=== PATIENT | female | born 1990 | race Caucasian/White ===

== ENCOUNTER 2018-11-07 20:22 | Inpatient (IN) | payer SELFPAY ==
[2018-11-07] VITALS (8 sets, daily range): BP systolic 109–126; BP diastolic 62–78; PULSE 68–85; RESP 16–18; TEMP 36.6–37.2; O2SAT 95–100; BMI 28.9
[2018-11-07] MEDS: Lactated Ringers 1,000 ML 999 ML IV (20:05)
--- NOTE | 2018-11-07 20:38 | PCM.HP.OB ---
- Problem List (1) Partial placenta previa with hemorrhage during in third trimester Status: Acute History Date of Admission: 11/07/18 Final RICKI: 11/09/18 Gestational age: 39 Weeks and 5 Days History of this : This is a 28 year-old, at 39 weeks 5 days gestational age presents with acute vaginal bleeding for the last 2 hours. 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 She started having contractions today and started having heavy bleeding saturating more than a pad an hour for the last 2 hours. She has been feeling movement is recent as 30 minutes prior to now. She has not had any ultrasounds or blood work done in the . She is a history of 2 previous term vaginal deliveries at the [facility]. Smoking Status: Never smoker Alcohol: None Number of Fetus(es): 1 Heart Tracin min-mod variability initially late decels now resolved with IVFs and position changes reactive. bedside ultrasound showed breathing and movement. toco q 2-3 placenta partial posterior previa History Past Pregnancies: Past Pregnancies 2 previous term uncomplicated vaginal deliveries at the [facility]. One was face presentation but delivered vaginally Labs: Mom's Problem List Problem Status Onset Code Partial placenta previa with hemorrhage during in third trimester Acute O44.33 Mom's Labs & Results 11/07/18 11/07/18 11/07/18 20:05 20:05 20:05 WBC Pending RBC Pending Hgb Pending Hct Pending MCV Pending MCH Pending MCHC Pending RDW Pending RDW Differential Pending Plt Count Pending Neut % (Auto) Pending Absolute Neuts (auto) Pending Total Counted Pending PT INR APTT Fibrinogen Urine Opiates Screen Urine Methadone Screen Ur Barbiturates Screen Ur Phencyclidine Scrn Ur Amphetamines Screen U Methamphetamin-MDMA U Benzodiazepines Scrn Urine Cocaine Screen U Cannabinoids Screen Ur Drug Screen Comment RPR Pending Hep Bs Antigen Hepatitis C Ab (EIA) HIV 1&2 Antibody Rubella IgG Antibody Pending Blood Type Antibody Screen 11/07/18 11/07/18 11/07/18 20:05 20:05 20:05 WBC RBC Hgb Hct MCV MCH MCHC RDW RDW Differential Plt Count Neut % (Auto) Absolute Neuts (auto) Total Counted PT INR APTT Fibrinogen Urine Opiates Screen Pending Urine Methadone Screen Pending Ur Barbiturates Screen Pending Ur Phencyclidine Scrn Pending Ur Amphetamines Screen Pending U Methamphetamin-MDMA Pending U Benzodiazepines Scrn Pending Urine Cocaine Screen Pending U Cannabinoids Screen Pending Ur Drug Screen Comment RPR Hep Bs Antigen Pending Hepatitis C Ab (EIA) Pending HIV 1&2 Antibody Rubella IgG Antibody Blood Type Pending Antibody Screen Pending 11/07/18 11/07/18 20:05 20:05 WBC RBC Hgb Hct MCV MCH MCHC RDW RDW Differential Plt Count Neut % (Auto) Absolute Neuts (auto) Total Counted PT Pending INR Pending APTT Pending Fibrinogen Pending Urine Opiates Screen Urine Methadone Screen Ur Barbiturates Screen Ur Phencyclidine Scrn Ur Amphetamines Screen U Methamphetamin-MDMA U Benzodiazepines Scrn Urine Cocaine Screen U Cannabinoids Screen Ur Drug Screen Comment RPR Hep Bs Antigen Hepatitis C Ab (EIA) HIV 1&2 Antibody Pending Rubella IgG Antibody Blood Type Antibody Screen Social History Smoking Status Never smoker Expected Delivery Method: Primary Section Number of Visits: First visit at 21 weeks only 5 visits Review of Systems Constitutional: Denies: Fever, Malaise Eyes: Denies: Blurred vision, Vision Change HEENT: Denies: Head Aches, Visual Changes Cardiovascular: Denies: Chest Pain, Palpitations Respiratory: Denies: Cough, Shortness of Breath, Wheezing Gastrointestinal: Denies: Abdominal Pain, Diarrhea, Nausea, Vomiting Genitourinary: Denies: Dysuria, Hematuria Gynecological: Reports: Vaginal bleeding - heavy greater than a pad an hour Musculoskeletal: Denies: Joint Pain, Muscle pain Skin: Denies: Lesions, Rash Neurological: Denies: Blurred vision, Focal weakness, Headaches Psychiatric: Denies: Anxiety, Depression Endocrine: Denies: Heat/ Cold Intolerance Hematologic/ Lymphatic: Denies: Easy Bruising, Easy Bleeding Physical Exam General: Alert, Cooperative, No apparent distress HEENT: Atraumatic, Normocephalic. Negative for: Thyromegaly, Lymphadenopathy Cardiovascular: Regular rate Lungs: Normal air movement Abdomen: Soft, Non Tender, Gravid Neurological: Deep Tendon Reflexes 2+/4 and Symmetrical, Neuro grossly intact. Negative for: Clonus YARD FOREMAN: Normal external genitalia. Negative for: Vulvar lesions Estimated gestational size: Appropriate for gestational size Presentation: Cephalic Assessment/Plan All Active Problems Partial placenta previa with hemorrhage during in third trimester (Acute) This is a 28 year-old, at 39w5d weeks gestational age with partial posterior placenta previa with acute hemorrhage in active labor Proceed with immediate STAS primary low transverse Type and cross 2 units all blood work sent
[2018-11-07 20:42] LABS: Absolute Lymphocyte Count 1.57 X10^3/ul (0.83-4.51); Absolute Neutrophil Count 12.3 X10^3/uL (2.0-7.7); Basophil# 0.01 X10^3/uL; Basophil% 0.1 % (0-1); Eosinophil# 0.06 X10^3/uL; Eosinophils% 0.4 % (0-5); Hematocrit 33.3 % (37-47); Hemoglobin 11.6 g/dl (12.0-15.0); Lymphocyte # 1.57 X10^3/ul (4.0); Lymphocyte % 10.5 % (19-41); Mean Corp Hgb Conc 34.8 g/gl (32-36); Mean Corpuscular Hgb 29.7 pg (27.0-32.0); Mean Corpuscular Volume 85.2 fL (81-99); Mean Platelet Vol. 9.3 fl (6.2-12.0); Monocyte# 1.01 X10^3/uL; Monocyte% 6.8 % (0-10); Neutrophil # 12.26 X10^3/uL (2.7-7.7); Platelet Count 222 K/mm3 (150-450); RBC Distribution Width CV 13.2 % (11.6-14.6); RBC Distribution Width SD 40.7 fl (35.1-43.9); Red Blood Count 3.91 M/mm3 (4.2-5.4); White Blood Count 14.9 K/mm3 (4.4-11.0)
--- NOTE | 2018-11-07 20:42 | HP.PCM_ITS ---
- Problem List (1) Partial placenta previa with hemorrhage during in third trimester Status: Acute History Date of Admission: 11/07/18 Final RICKI: 11/09/18 Gestational age: 39 Weeks and 5 Days History of this : This is a 28 year-old, at 39 weeks 5 days gestational age presents with acute vaginal bleeding for the last 2 hours. 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 She started having contractions today and started having heavy bleeding saturating more than a pad an hour for the last 2 hours. She has been feeling movement is recent as 30 minutes prior to now. She has not had any ultrasounds or blood work done in the . She is a history of 2 previous term vaginal deliveries at the [facility]. Smoking Status: Never smoker Alcohol: None Number of Fetus(es): 1 Heart Tracin min-mod variability initially late decels now resolved with IVFs and position changes reactive. bedside ultrasound showed breathing and movement. toco q 2-3 placenta partial posterior previa History Past Pregnancies: Past Pregnancies 2 previous term uncomplicated vaginal deliveries at the [facility]. One was face presentation but delivered vaginally Labs: Mom's Problem List Problem Status Onset Code Partial placenta previa with hemorrhage during in third trimester Acute O44.33 Mom's Labs & Results 11/07/18 11/07/18 11/07/18 20:05 20:05 20:05 WBC Pending RBC Pending Hgb Pending Hct Pending MCV Pending MCH Pending MCHC Pending RDW Pending RDW Differential Pending Plt Count Pending Neut % (Auto) Pending Absolute Neuts (auto) Pending Total Counted Pending PT INR APTT Fibrinogen Urine Opiates Screen Urine Methadone Screen Ur Barbiturates Screen Ur Phencyclidine Scrn Ur Amphetamines Screen U Methamphetamin-MDMA U Benzodiazepines Scrn Urine Cocaine Screen U Cannabinoids Screen Ur Drug Screen Comment RPR Pending Hep Bs Antigen Hepatitis C Ab (EIA) HIV 1&2 Antibody Rubella IgG Antibody Pending Blood Type Antibody Screen 11/07/18 11/07/18 11/07/18 20:05 20:05 20:05 WBC RBC Hgb Hct MCV MCH MCHC RDW RDW Differential Plt Count Neut % (Auto) Absolute Neuts (auto) Total Counted PT INR APTT Fibrinogen Urine Opiates Screen Pending Urine Methadone Screen Pending Ur Barbiturates Screen Pending Ur Phencyclidine Scrn Pending Ur Amphetamines Screen Pending U Methamphetamin-MDMA Pending U Benzodiazepines Scrn Pending Urine Cocaine Screen Pending U Cannabinoids Screen Pending Ur Drug Screen Comment RPR Hep Bs Antigen Pending Hepatitis C Ab (EIA) Pending HIV 1&2 Antibody Rubella IgG Antibody Blood Type Pending Antibody Screen Pending 11/07/18 11/07/18 20:05 20:05 WBC RBC Hgb Hct MCV MCH MCHC RDW RDW Differential Plt Count Neut % (Auto) Absolute Neuts (auto) Total Counted PT Pending INR Pending APTT Pending Fibrinogen Pending Urine Opiates Screen Urine Methadone Screen Ur Barbiturates Screen Ur Phencyclidine Scrn Ur Amphetamines Screen U Methamphetamin-MDMA U Benzodiazepines Scrn Urine Cocaine Screen U Cannabinoids Screen Ur Drug Screen Comment RPR Hep Bs Antigen Hepatitis C Ab (EIA) HIV 1&2 Antibody Pending Rubella IgG Antibody Blood Type Antibody Screen Social History Smoking Status Never smoker Expected Delivery Method: Primary Section Number of Visits: First visit at 21 weeks only 5 visits Review of Systems Constitutional: Denies: Fever, Malaise Eyes: Denies: Blurred vision, Vision Change HEENT: Denies: Head Aches, Visual Changes Cardiovascular: Denies: Chest Pain, Palpitations Respiratory: Denies: Cough, Shortness of Breath, Wheezing Gastrointestinal: Denies: Abdominal Pain, Diarrhea, Nausea, Vomiting Genitourinary: Denies: Dysuria, Hematuria Gynecological: Reports: Vaginal bleeding - heavy greater than a pad an hour Musculoskeletal: Denies: Joint Pain, Muscle pain Skin: Denies: Lesions, Rash Neurological: Denies: Blurred vision, Focal weakness, Headaches Psychiatric: Denies: Anxiety, Depression Endocrine: Denies: Heat/ Cold Intolerance Hematologic/ Lymphatic: Denies: Easy Bruising, Easy Bleeding Physical Exam General: Alert, Cooperative, No apparent distress HEENT: Atraumatic, Normocephalic. Negative for: Thyromegaly, Lymphadenopathy Cardiovascular: Regular rate Lungs: Normal air movement Abdomen: Soft, Non Tender, Gravid Neurological: Deep Tendon Reflexes 2+/4 and Symmetrical, Neuro grossly intact. 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 Negative for: Vulvar lesions Estimated gestational size: Appropriate for gestational size Presentation: Cephalic Assessment/Plan All Active Problems Partial placenta previa with hemorrhage during in third trimester (Acute) This is a 28 year-old, at 39w5d weeks gestational age with partial posterior placenta previa with acute hemorrhage in active labor Proceed with immediate STAS primary low transverse Type and cross 2 units all blood work sent
[2018-11-07 20:43] LABS: POSITIVE COUNT NO; POSITIVE DIFFERENTIAL NO; POSITIVE MORPHOLOGY NO
[2018-11-07] MEDS: Sodium Citrate/Citric Acid 30 ML UDC PO (20:47)
[2018-11-07 20:52] LABS: Prothrombin Time (Protime)PT. 12.5 SECONDS (11.7-14.9)
[2018-11-07] MEDS: Cefazolin 2 GM in 0.9% Normal Saline 100 ML IV (20:52)
[2018-11-07 20:53] LABS: Partial Thromboplast Time 30.5 Seconds (24.1-36.2)
--- NOTE | 2018-11-07 20:54 | PCM.OPRPT ---
Problem List (1) Partial placenta previa with hemorrhage during in third trimester Status: Acute Report of Operation Date of Procedure: 11/07/18 Pre-Operative Diagnosis: previa with hemorrhage Post-Operative Diagnosis: same Surgery/Procedure Performed:: [facility] financial aid director: Bisi Rosario Type of Anesthesia:: Spinal Delivery Classification: STAS Final RICKI: 11/09/18 Gestational age: 39 Weeks and 5 Days Indications: previa with hemorrhage Indications for : Placenta Previa Description of Procedure: The patient is a 28-year-old at 39 weeks 5 days presented for vaginal bleeding and upon evaluation diagnosed with posterior placenta previa in active labor with hemorrhage. Patient received care by linoleum tile layer in the community and had not had any ultrasounds or blood work done in the . Her fiber technologist called and she presented to the hospital was evaluated and found to have suspected posterior partial placenta previa on ultrasound. Spinal anesthesia was placed without difficulty. Oliva catheter was placed. The patient was placed in the dorsal supine position with leftward tilt. Patient was prepped and draped in the normal sterile fashion. Pfannenstiel skin incision was made with the scalpel and carried through to the underlying layer of fascia with the scalpel. Fascia was nicked in the midline and the incision extended later The peritoneum was entered digitally. The incision was stretched and a low transverse uterine incision was made with the scalpel. The infant's head was delivered atraumatically followed by the anterior and posterior shoulders without complication the rest of the delivered. The cord was clamped and cut and the was handed off to awaiting nurse. Placenta was checked and noted to be a partial previa with the cervix dilated to 4 cm with a small abruption noted at about 50 cc of adherent clot noted at the cervix. Some mild atony of the lower uterine segment was noted and remedied with bimanual massage Pitocin and Methergine. The placenta was delivered spontaneously immediately following and was noted to be intact and have a three-vessel cord. The uterus was exteriorized cleared of all clots and debris, and the incision was closed in a double layer closure using #1 Monocryl. The uterus was returned to the maternal abdomen and gutters were cleared of all clots and debris. The ovaries and fallopian tubes were noted to be within normal limits. The peritoneum was closed with 3-0 Monocryl in a running fashion. Fascia was closed with 0 PDS in a running fashion. Subcutaneous tissue was copiously irrigated and the skin was closed with 3-0 Monocryl in a subcuticular fashion. Steri-Strips and Mepilex dressing were applied without complication. Patient was taken to recovery in stable condition. Amniotic Membrane Rupture Type: Artificial Amniotic Fluid Description: Moderate meconium Placenta Disposition: [facility] Cord Entanglement: None Esitmated Blood Loss (ml): 1500 Gender: Female Delayed cord clamping: No Pre-op Antibiotic Given: Ancef 2 grams IV x1 Pt instructed on risks of surgery: Bleeding, Anesthesia Risks, Infection, Injury to surrounding structure(s) including bowel and bladder Complications: None - Admit VTE Documentation VTE Present on Admission: No VTE Mechan Device Prophylaxis: SCD's
[2018-11-07 20:57] LABS: Fibrinogen 517 mg/dl (203-444)
[2018-11-07] MEDS: Oxytocin 30 units/NS 500 ml 30 UNITS/500 ML IV.SOLN 167 UNITS IV (21:11)
[2018-11-07] MEDS: Methylergonovine 0.2 MG/ML Ampul IM (21:16)
[2018-11-07 21:32] LABS: Rubella IgG < 0.2 IU/mL
[2018-11-07 21:39] LABS: Amphetamine Urine VISTA NEGATIVE (<1000 ng/mL); Barbiturate Urine VISTA NEGATIVE (< 200 ng/mL); Benzodiazepine Urine VISTA NEGATIVE (< 200 ng/mL); Cocaine Urine VISTA NEGATIVE (< 300 ng/mL); Ecstacy Urine VISTA NEGATIVE (< 500 ng/mL); Methadone Urine VISTA NEGATIVE (< 300 ng/mL); PCP Urine VISTA NEGATIVE (< 25 ng/mL); THC Urine VISTA NEGATIVE (< 50 ng/mL); Vista UDS pH Range 6
[2018-11-07 21:56] LABS: HIV - WCH Non-Reactive (Nonreactive)
[2018-11-07 22:50] LABS: Chlamydia Trachomatis by PCR Negative (Negative); Neisserai gonorrhoeae by PCR Negative (Negative)
[2018-11-07 22:51] LABS: Probe Check PASS; Sample Adequacy Control PASS; Specimen Processing Control PASS
--- NOTE | 2018-11-07 23:11 | NURSING ---
2312-[facility] through [facility], however did see harshil dickson director of field service for her care during the
[2018-11-07] MEDS: Lactated Ringers 1,000 ML 100 ML IV (23:51)
[2018-11-08] VITALS (19 sets, daily range): BP systolic 101–128; BP diastolic 51–83; PULSE 71–100; RESP 14–18; TEMP 36.6–37.3; O2SAT 98–100
[2018-11-08] MEDS: Ketorolac 30 MG/ML Syringe IV ×5 (01:10→22:45)
--- NOTE | 2018-11-08 01:38 | NURSING ---
0132-cord blood collected initially d/t not knowing mat blood type, and then not sent d/t mat blood type being AB+
--- NOTE | 2018-11-08 01:45 | NURSING ---
013-late enrty, pt cervix not checked upon arrival d/t bleeding, dr del rio examined cervix after delivery while abd still open and noted pt to have been 4 cm dilated. pt started contx 11/07 at 1200 at home and noted the bleeding at 1830
[2018-11-08 03:44] LABS: Hematocrit 30.2 % (37-47); Hemoglobin 10.1 g/dl (12.0-15.0); Mean Corp Hgb Conc 33.4 g/gl (32-36); Mean Corpuscular Hgb 29.4 pg (27.0-32.0); Mean Platelet Vol. 9.7 fl (6.2-12.0); Platelet Count 207 K/mm3 (150-450); RBC Distribution Width CV 12.9 % (11.6-14.6); RBC Distribution Width SD 39.7 fl (35.1-43.9); Red Blood Count 3.43 M/mm3 (4.2-5.4); Scan Indicated on CBC? Y/N NO; White Blood Count 14.5 K/mm3 (4.4-11.0)
[2018-11-08] MEDS: Lactated Ringers 1,000 ML 100 ML IV ×2 (07:46→16:47)
--- NOTE | 2018-11-08 08:03 | PN.OBGYN_ITS ---
Patient Problems: Active and Suspected Problems Partial placenta previa with hemorrhage during in third trimester (Acute) Subjective: doing well no complaints pain controlled no CP SOB N V lochia moderate, - Physical Exam General: Alert, Oriented x3 Abdomen: Soft, Non-Distended, - - FF below U. Dressing intact, noted old dark drainage. Pain controlled with exam Vital Signs Temp Pulse Resp BP Pulse Ox 99.0 F 81 18 104/54 L 100 11/08/18 05:50 11/08/18 05:50 11/08/18 07:05 11/08/18 05:50 11/08/18 07:05 Oxygen Delivery Method Room Air Weight: 168 lb 10.458 oz Body Mass Index (BMI) 28.9 Intake and Output for Last 24 Hours 11/06/18 11/07/18 11/08/18 23:59 23:59 23:59 Intake Total 3253 / 3253 1305 / 1305 Output Total 1050 / 1050 600 / 600 Balance 2203 / 2203 705 / 705 Laboratory Tests Past 24 Hrs 11/07/18 11/07/18 11/07/18 20:05 20:05 20:05 WBC 14.9 H RBC 3.91 L Hgb 11.6 L Hct 33.3 L MCV 85.2 MCH 29.7 MCHC 34.8 RDW 13.2 RDW Differential 40.7 Plt Count 222 MPV 9.3 Immature Gran % (Auto) 0.200 Neut % (Auto) 82.0 H Lymph % (Auto) 10.[address] % (Auto) 6.8 Eos % (Auto) 0.4 Baso % (Auto) 0.1 Absolute Neuts (auto) 12.3 H Absolute Lymphs (auto) 1.57 Total Counted Not Reportable PT INR APTT Fibrinogen Urine Opiates Screen Urine Methadone Screen Ur Barbiturates Screen Ur Phencyclidine Scrn Ur Amphetamines Screen U Methamphetamin-MDMA U Benzodiazepines Scrn Urine Cocaine Screen U Cannabinoids Screen Ur Drug Screen Comment RPR Pending Chlam trachomat DNA PCR Hep Bs Antigen Hepatitis C Ab (EIA) HIV 1&2 Antibody N.gonorrhoeae DNA (PCR) Rubella IgG Antibody < 0.2 Blood Type Antibody Screen Crossmatch 11/07/18 11/07/18 11/07/18 20:05 20:05 20:05 WBC RBC Hgb Hct MCV MCH MCHC RDW RDW Differential Plt Count MPV Immature Gran % (Auto) Neut % (Auto) Lymph % (Auto) [place] % (Auto) Eos % (Auto) Baso % (Auto) Absolute Neuts (auto) Absolute Lymphs (auto) Total Counted PT INR APTT Fibrinogen Urine Opiates Screen NEGATIVE Urine Methadone Screen NEGATIVE Ur Barbiturates Screen NEGATIVE Ur Phencyclidine Scrn NEGATIVE Ur Amphetamines Screen NEGATIVE U Methamphetamin-MDMA NEGATIVE U Benzodiazepines Scrn NEGATIVE Urine Cocaine Screen NEGATIVE U Cannabinoids Screen NEGATIVE Ur Drug Screen Comment RPR Chlam trachomat DNA PCR Hep Bs Antigen Pending Hepatitis C Ab (EIA) Pending HIV 1&2 Antibody N.gonorrhoeae DNA (PCR) Rubella IgG Antibody Blood Type AB POSITIVE Antibody Screen NEGATIVE Crossmatch 11/07/18 11/07/18 11/07/18 20:05 20:05 20:05 WBC RBC Hgb Hct MCV MCH MCHC RDW RDW Differential Plt Count MPV Immature Gran % (Auto) Neut % (Auto) Lymph % (Auto) [place] % (Auto) Eos % (Auto) Baso % (Auto) Absolute Neuts (auto) Absolute Lymphs (auto) Total Counted PT 12.5 INR 1.0 APTT 30.5 Fibrinogen 517 H Urine Opiates Screen Urine Methadone Screen Ur Barbiturates Screen Ur Phencyclidine Scrn Ur Amphetamines Screen U Methamphetamin-MDMA U Benzodiazepines Scrn Urine Cocaine Screen U Cannabinoids Screen Ur Drug Screen Comment RPR Chlam trachomat DNA PCR Negative Hep Bs Antigen Hepatitis C Ab (EIA) HIV 1&2 Antibody Non-Reactive N.gonorrhoeae DNA (PCR) Negative Rubella IgG Antibody Blood Type Antibody Screen Crossmatch 11/07/18 11/08/18 20:05 02:50 WBC 14.5 H RBC 3.43 L Hgb 10.1 L Hct 30.2 L MCV 88.0 MCH 29.4 MCHC 33.4 RDW 12.9 RDW Differential 39.7 Plt Count 207 MPV 9.7 Immature Gran % (Auto) Neut % (Auto) Lymph % (Auto) [place] % (Auto) Eos % (Auto) Baso % (Auto) Absolute Neuts (auto) Absolute Lymphs (auto) Total Counted PT INR APTT Fibrinogen Urine Opiates Screen Urine Methadone Screen Ur Barbiturates Screen Ur Phencyclidine Scrn Ur Amphetamines Screen U Methamphetamin-MDMA U Benzodiazepines Scrn Urine Cocaine Screen U Cannabinoids Screen Ur Drug Screen Comment RPR Chlam trachomat DNA PCR Hep Bs Antigen Hepatitis C Ab (EIA) HIV 1&2 Antibody N.gonorrhoeae DNA (PCR) Rubella IgG Antibody Blood Type Antibody Screen Crossmatch See Detail Medical Necessity - Tobacco Use Smoking Status: Never smoker Assessment/Plan All Active Problems Partial placenta previa with hemorrhage during in third trimester (Acute) s/p LTCS PPD # 1 1. routine post care 2. breast feeding- support given 3. rh positive
[2018-11-08] MEDS: 0.9% Saline Lock 10 ML Syringe IV (22:40)
--- NOTE | 2018-11-08 23:02 | NURSING ---
Upon assessment, drainage on mepilex had gone past previous circling, so new drainage was circled. Will reassess at next fundal check.
[2018-11-09 02:05] VITALS: BP 112/54; PULSE 82; RESP 16; TEMP 36.3; O2SAT 99
[2018-11-09] MEDS: Ketorolac 30 MG/ML Syringe IV (05:07)
[2018-11-09] MEDS: 0.9% Saline Lock 10 ML Syringe IV (05:08)
[2018-11-09 07:42] VITALS: BP 103/57; PULSE 88; RESP 16; TEMP 36.9; O2SAT 99
--- NOTE | 2018-11-09 08:06 | PCM.PN.OB ---
Patient Problems: Active and Suspected Problems Partial placenta previa with hemorrhage during in third trimester (Acute) Subjective: doing well no complaints pain controlled no CP SOB N V ambulating well tolerating po lochia moderate, going well - Physical Exam General: Alert, Oriented x3 Abdomen: Soft, Non-Distended, - - Dressing intact, old drainage only. FF below U. Vital Signs Temp Pulse Resp BP Pulse Ox 98.5 F 88 16 103/57 L 99 11/09/18 07:42 11/09/18 07:42 11/09/18 07:42 11/09/18 07:42 11/09/18 07:42 Oxygen Delivery Method Room Air Weight: 168 lb 10.458 oz Body Mass Index (BMI) 28.9 Intake and Output for Last 24 Hours 11/07/18 11/08/18 11/09/18 23:59 23:59 23:59 Intake Total 3253 / 3253 3665 / 3665 Output Total 1050 / 1050 4350 / 4350 900 / 900 Balance 2203 / 2203 -685 / -685 -900 / -900 Medical Necessity - Tobacco Use Smoking Status: Never smoker Assessment/Plan All Active Problems Partial placenta previa with hemorrhage during in third trimester (Acute) s/p LTCS PPD # 2 1. routine post care 2. breast feeding- support given 3. rh positive 4. rubella nonimmune 5. home today
--- NOTE | 2018-11-09 08:09 | PCM.DCCSEC ---
Additional Instructions: If you experience any of the following, contact your healthcare provider. Bleeding that soaks a pad every hour for 2 hours Fever 100.4 or higher Unrelieved incision or abdominal pain Swelling, redness, discharge or bleeding from your incision or episiotomy site Your incision begins to separate Problems urinating (including inability to urinate or burning while urinating). Visual changes Severe headache Flu-like symptoms Pain or redness in one of both of your breasts Pain, warmth, tenderness or swelling in your legs, especially the calf area Frequent nausea and vomiting Symptoms of depression or anxiety If you experience any of the following, call 911 or go to the nearest Emergency Room. Chest pain Problems breathing Seizure activity Partial or complete paralysis of a body part, slurred speech, weakness or drooping of the face, or a sudden inability to walk or hold your balance Allergies/Adverse Reactions: Allergies No Known Allergies Allergy (Verified 11/07/18 20:43) Medications to take at Discharge Vits [Prenatabs FA] 1 tablet PO DAILY 11/07/18 Oxycodone HCl/Acetaminophen [Percocet 5/325] 1 - 2 tablet PO Q4H PRN PRN 3 Days #15 tablet 11/09/18 The following prescriptions were given: Oxycodone HCl/Acetaminophen [Percocet 5/325] 1 - 2 tablet PO Q4H PRN PRN 3 Days #15 tablet PRN Reason: Pain Follow-Up: Call to make an appointment with your doctor for an incision check in 1-2 weeks. You will also need a 6 week post- follow up appointment. Test results from this visit will be discussed in further detail at your follow-up appointment, if applicable.
--- NOTE | 2018-11-09 08:10 | DCINST_ITS ---
Additional Instructions: If you experience any of the following, contact your healthcare provider. * Bleeding that soaks a pad every hour for 2 hours * Fever 100.4 or higher * Unrelieved incision or abdominal pain * Swelling, redness, discharge or bleeding from your incision or episiotomy site * Your incision begins to separate * Problems urinating (including inability to urinate or burning while urinating). * Visual changes * Severe headache * Flu-like symptoms * Pain or redness in one of both of your breasts * Pain, warmth, tenderness or swelling in your legs, especially the calf area * Frequent nausea and vomiting * Symptoms of depression or anxiety If you experience any of the following, call 911 or go to the nearest Emergency Room. * Chest pain * Problems breathing * Seizure activity * Partial or complete paralysis of a body part, slurred speech, weakness or drooping of the face, or a sudden inability to walk or hold your balance Allergies/Adverse Reactions: Allergies No Known Allergies Allergy (Verified 11/07/18 20:43) Medications to take at Discharge Vits [Prenatabs FA] 1 tablet PO DAILY 11/07/18 Oxycodone HCl/Acetaminophen [Percocet 5/325] 1 - 2 tablet PO Q4H PRN PRN 3 Days #15 tablet 11/09/18 The following prescriptions were given: Oxycodone HCl/Acetaminophen [Percocet 5/325] 1 - 2 tablet PO Q4H PRN PRN 3 Days #15 tablet PRN Reason: Pain Follow-Up: Call to make an appointment with your doctor for an incision check in 1-2 weeks. You will also need a 6 week post- follow up appointment. Test results from this visit will be discussed in further detail at your follow- up appointment, if applicable.
[2018-11-09 11:22] VITALS: BP 104/56; PULSE 80; RESP 16; TEMP 36.9; O2SAT 97
[2018-11-09 11:48] LABS: HEPATITIS B SURFACE AG Negative (Negative); Hep C Antibodies <0.1 s/co ratio (0.0-0.9)
[2018-11-11 01:30] LABS: Rapid Plasmin Reagin (RPR) NONREACTIVE (NONREACTIVE)
== END 2018-11-09 11:30 | disposition home or self-care (01) | DRG 788 ==
LOC: WPOUT 20:36 → WP 21:16
PROVIDERS: Admitting Provider Obstetrics & Gynecology; Family Provider Obstetrics & Gynecology; Visit Provider Obstetrics & Gynecology
DX: O44.33 Partial placenta previa with hemorrhage, third trimester (principal); Z3A.39 39 weeks gestation of pregnancy; Z37.0 Single live birth; O75.89 Other specified complications of labor and delivery; O45.93 Premature separation of placenta, unspecified, third trimester; O77.0 Labor and delivery complicated by meconium in amniotic fluid
CPT/HCPCS: 59025; 59050; 80307; 85025; 85027; 85384; 85610; 85730; 86592; 86703; 86762; 86803; 86850; 86900; 86920; 87340; 87491; 87591; 94660; 94799; 99218; J7120; A4216; G0378; J2405